=== PATIENT | female | born 1980 | race Hispanic/Latino ===

== ENCOUNTER 2020-01-13 16:02 | Outpatient (CLI) | payer OTHER ==
--- NOTE | 2020-01-13 16:26 | MMO ---
Bilateral MAMMO Bilat Screen [facility]. CLINICAL HISTORY: Patient is 39 years old and is seen for screening. The patient has no family history of breast cancer. The patient has no personal history of cancer. VIEWS: The views performed were: bilateral craniocaudal with tomosynthesis and bilateral mediolateral oblique with tomosynthesis. This study has been interpreted with the assistance of computer-aided detection. MAMMOGRAM FINDINGS: The breasts are heterogeneously dense, which could obscure a lesion on mammography. There are no suspicious masses, suspicious calcifications, or new areas of architectural distortion. IMPRESSION: THERE IS NO MAMMOGRAPHIC EVIDENCE OF MALIGNANCY. A ROUTINE FOLLOW-UP MAMMOGRAM IN 1 YEAR IS RECOMMENDED. THE RESULTS OF THIS EXAM WERE SENT TO THE PATIENT. ACR BI-RADS Category 1 - Negative MAMMOGRAPHY NOTE: 1. A negative mammogram report should not delay a biopsy if a dominant of clinically suspicious mass is present. 2. Approximately 10% to 15% of breast cancers are not detected by mammography. 3. Adenosis and dense breasts may obscure an underlying neoplasm. Reported by: DEON KELLER MD Electonically Signed: [id number]
== END 2020-01-13 16:03 | disposition home or self-care (01) ==
LOC: BICMAMMO 16:02
PROVIDERS: ATTEND Internal Medicine
DX: Z12.31 Encounter for screening mammogram for malignant neoplasm of breast (principal); N60.29 Fibroadenosis of unspecified breast
CPT/HCPCS: 77063; 77067

== ENCOUNTER 2021-04-23 13:11 | Outpatient (CLI) | payer BC | END 2021-04-23 13:12 | disposition home or self-care (01) | LOC: SCSRAD 13:11 | PROVIDERS: ATTEND Specialist | DX: M46.1 Sacroiliitis, not elsewhere classified (principal); M51.16 Intervertebral disc disorders with radiculopathy, lumbar region; M47.26 Other spondylosis with radiculopathy, lumbar region | CPT/HCPCS: 72120; 72220 ==

== ENCOUNTER 2022-11-04 13:49 | Outpatient (CLI) | payer BC | END 2022-11-04 13:50 | disposition home or self-care (01) | LOC: SCSRAD 13:49 | PROVIDERS: ATTEND Student in an Organized Health Care Education/Training Program | DX: R10.12 Left upper quadrant pain (principal); R93.3 Abnormal findings on diagnostic imaging of other parts of digestive tract | CPT/HCPCS: 74019 ==

== ENCOUNTER 2023-07-19 17:58 | Outpatient (CLI) | payer BC | END 2023-07-19 17:59 | disposition home or self-care (01) | LOC: SCSRAD 17:58 | PROVIDERS: ATTEND Nurse Practitioner Family | DX: M25.511 Pain in right shoulder (principal) ==